=== PATIENT | female | born 1965 | race Caucasian/White ===

== ENCOUNTER 2021-10-31 18:01 | Emergency (ER) | payer BC ==
[2021-10-31] MEDS ORDERED: Sodium Chloride 0.9% 1000 ML 1,000 ML IV STA (18:40)
--- NOTE | 2021-10-31 18:40 | ERPHSYRPT ---
- History of Present Illness Time Seen by Provider: 10/31/21 18:06 Source: patient Exam Limitations: no limitations Patient Subjective Stated Complaint: pt here for vomiting x1 today, loose stools x3, she was covid postive 10/30/2021. and states she went to [facility] and was unable to get the infusion and she thinks she need the infusion and fluids, Triage Nursing Assessment: pt alert, resp easy, face mask in place, has occ dry cough, skin w/d/p. no edema noted, Physician History: 56 years old unvaccinated against COVID-19 with a positive Covid having symptoms of generalized weakness fatigue tiredness for almost 6 days. Patient reports she lost her taste and smell sensation and has decreased oral intake. She also having nausea and vomiting with oral intake and is not able to hold much down and this morning she started to have some loose stool x3 without hematochezia or hematemesis. Minimal abdominal discomfort at times. She was evaluated yesterday at [facility], wanted to get Regeneron which was not available there and she decided to come here today to get Regeneron and some fluids. She feels dehydrated. Has minimal nonproductive cough without any shortness of breath or chest pain. Subjective feeling of fever and chills. Timing/Duration: day(s) (6), constant, gradual onset, worse Severity: moderate Modifying Factors: Worsens With: movement Associated Symptoms: nausea, vomiting, abdominal pain, cough, fever, headaches, loss of appetite, malaise, weakness, No shortness of breath Allergies/Adverse Reactions: No Known Drug Allergies Allergy (Unverified 10/31/21 18:34) Home Medications: Amlodipine Besylate [Norvasc] 1 ea DAILY 10/31/21 [History] Irbesartan/Hydrochlorothiazide [Irbesartan-Hctz 300-12.5 mg Tb] 1 ea DAILY 10/31/21 [History] Ondansetron [Ondansetron Odt ] 1 ea TID 10/31/21 [History] Hx Tetanus, Diphtheria Vaccination/Date Given: No Hx Influenza Vaccination/Date Given: No Hx Pneumococcal Vaccination/Date Given: No Immunizations Up to Date: Yes Travel Risk - International Travel Have you traveled outside of the country in past 3 weeks: No - Coronavirus Screening Are you exhibiting any of the following symptoms?: Yes Symptoms: Cough: New Onset, Vomiting/Diarrhea, Headaches/Body Aches/Fatigue Close contact with a COVID-19 positive Pt in past 14-21 Days: Yes - Vaccine Status Have you recieved a Covid-19 vaccination: No - Review of Systems Constitutional: Fever, Chills, Fatigue, Weakness Eyes: No Symptoms Ears, Nose, & Throat: No Symptoms Respiratory: Cough Cardiac: No Symptoms Abdominal/Gastrointestinal: Abdominal Pain, Nausea, Vomiting, Diarrhea Genitourinary Symptoms: No Symptoms Musculoskeletal: Myalgias Skin: No Symptoms Neurological: No Symptoms Psychological: No Symptoms Endocrine: No Symptoms Hematologic/Lymphatic: No Symptoms Immunological/Allergic: No Symptoms - Past Medical History Pertinent Past Medical History: Yes Cardiac History: Hypertension - Past Surgical History Past Surgical History: Yes Gastrointestinal: Appendectomy Musculoskeletal: Orthopedic Surgery Female Surgical History: Tubal Ligation Other Surgical History: breast inplants ,knee - Social History Smoking Status: Current every day smoker Exposure to second hand smoke: Yes Drug Use: none Patient Lives Alone: No - Female History Hx Last Menstrual Period: hyster Hx Now: No - Nursing Vital Signs Nursing Vital Signs: Initial Vital Signs Temperature 98.0 F 10/31/21 18:26 Pulse Rate 90 10/31/21 18:26 Respiratory Rate 18 10/31/21 18:26 Blood Pressure 175/54 10/31/21 18:26 O2 Sat by Pulse Oximetry 96 10/31/21 18:26 Pain Scale Pain Intensity 4 - Physical Exam General Appearance: no apparent distress, alert Eye Exam: PERRL/EOMI, eyes nml inspection Ears, Nose, Throat Exam: moist mucous membranes, pharyngeal erythema Neck Exam: normal inspection, supple, full range of motion Respiratory Exam: normal breath sounds, lungs clear Cardiovascular Exam: regular rate/rhythm, normal heart sounds Gastrointestinal/Abdomen Exam: soft, normal bowel sounds, No tenderness Back Exam: normal inspection, normal range of motion Extremity Exam: normal inspection, normal range of motion, pelvis stable Neurologic Exam: alert, oriented x 3, cooperative, renal nurse II-XII nml as tested Skin Exam: normal color SpO2 Interpretation: normal SpO2: 96 O2 Delivery: Room Air Ordered Tests: Active Orders 24 hr Category Date Time Status IV Insertion STAT Care 10/31/21 18:40 Active NPO (ED) STAT Care 10/31/21 18:40 Active CBC W DIFF Stat Lab 10/31/21 18:40 Ordered CMP Stat Lab 10/31/21 18:40 Ordered Lactic Acid Stat Lab 10/31/21 18:40 Ordered UA W/RFX UR CULTURE Stat Lab 10/31/21 18:40 Ordered Medication Summary Generic Name Dose Route Start Last Admin Trade Name Freq PRN Reason Stop Dose Admin Sodium Chloride 1,000 mls @ 999 mls/hr 10/31/21 18:40 10/31/21 18:55 Sodium Chloride 0.9% 1000 Ml IV 10/31/21 19:40 999 mls/hr .Q1H1M STA Administration Discontinued Medications Generic Name Dose Route Start Last Admin Trade Name Freq PRN Reason Stop Dose Admin Sodium Chloride Confirm 10/31/21 18:47 Sodium Chloride 0.9% 1000 Ml Administered 10/31/21 18:48 Dose 1,000 mls @ ud .ROUTE .STK-MED ONE - Progress Progress: improved Progress Note: 10/31/21 she is given fluids and Zofran, on reevaluation feeling better. She is not in any distress, nontoxic appearance. Lungs bilateral clear and maintaining oxygen saturation at room air well above 95%. Abdominal exam soft nontender. Work-up grossly unremarkable. Recommended supportive care and outpatient follow-up for antibody infusion. Discussed signs symptoms of worsening needing return to ER which she seems understanding. I do not think she needs any imaging or any other work-up and is stable for discharge. Counseled pt/family regarding: lab results, diagnosis, need for follow-up, rad results, smoking cessation - Departure Departure Disposition: Home Clinical Impression: Acute viral syndrome, COVID-19 Condition: Stable Critical Care Time: No Referrals: DIOGENES CANALES FNP [Primary Care Provider] - Follow up/PCP as directed (1-2 days for reevaluation) Instructions: Cough, Adult (DC), Coronavirus Disease 2019 (COVID-19) (DC) Additional Instructions: Take Tylenol/Zofran as needed. Keep yourself well-hydrated with plenty of fluids. Up with primary care for reevaluation. Follow-up with outpatient for antibiotic infusion. Return to ER if having difficulty breathing, worsening/intractable nausea vomiting diarrhea/abdominal pain etc. Prescriptions: ondansetron HCL [Zofran] 4 mg PO Q6H PRN #7 tablet PRN Reason: Nausea
[2021-10-31] MEDS ORDERED: Sodium Chloride 0.9% 1000 ML 1,000 ML ONE (18:47)
[2021-10-31 19:27] LABS: Absolute Neutrophil Ct (ANC) 2.31 (1.4-6.9); BASOPHIL % 0.3 % (0.0-0.4); Basophil (Absolute #) 0.01 (0-0.4); Eosinophil % 0.3 % (0.00-5.0); Eosinophil (Absolute #) 0.01 (0-0.5); Hematocrit 39.3 % (35-47); Hemoglobin 13.6 gm/dl (12.0-16.0); Lymphocyte (Absolute #) 0.96 (1.0-4.6); Lymphocytes % 26.4 % (24.0-44.0); Mean Cell Volume 91.6 fl (78-100); Mean Corpuscular Hemoglobin 31.7 pg (26-32); Mean Corpuscular Hgb Concent. 34.6 g/dl (32-36); Mean Platelet Volume 10.9 fl (7.5-11.0); Monocyte (Absolute #) 0.34 (0.0-1.3); Monocytes % 9.4 % (0.0-12.0); Neutrophil % 63.6 % (36.0-66.0); Platelet Count 156 K/mm3 (150-450); Red Blood Count 4.29 M/mm3 (4.1-5.4); Red Cell Distribution Width 12.2 % (11.5-14.0); White Blood Count 3.6 K/mm3 (4.0-10.5)
[2021-10-31 19:37] LABS: Appearance SLIGHTLY CLOUDY (CLEAR); Bilirubin NEGATIVE (NEGATIVE); Blood MODERATE Ery/ul (0-5); Glucose NEGATIVE (NEGATIVE); Ketones NEGATIVE (NEGATIVE); Leukocyte Esterase NEGATIVE (NEGATIVE); Mucus SLIGHT /HPF (NEGATIVE); Nitrite NEGATIVE (NEGATIVE); Protein,Urine Dip 30 (Negative); Specific Gravity 1.024 (1.005-1.025); Urobilinogen NEGATIVE mg/dL (0-1)
[2021-10-31 19:55] LABS: ALBUMIN 3.8 g/dL (3.5-5.0); ALKALINE PHOSPHATASE 101 U/L (38-126); ANION GAP 10.5 MEQ/L (5-15); BLOOD UREA NITROGEN 17 mg/dL (7-17); CHLORIDE 97 mmol/L (98-107); Calcium 8.3 mg/dL (8.4-10.2); Carbon Dioxide 27 mmol/L (22-30); Creatinine 1 0.73 mg/dL (0.52-1.04); EST GLOMERULAR FILTRATION RATE > 60.0 ML/MIN; Glucose 104 mg/dL (74-106); Potassium 3.5 mmol/L (3.5-5.1); SGOT/AST 63 U/L (14-36); SGPT/ALT 72 U/L (0-35); SODIUM 131 mmol/L (137-145); Total Protein 6.5 g/dL (6.3-8.2)
[2021-10-31 21:13] VITALS: BP 127/60; PULSE 100; O2SAT 97
== END 2021-10-31 21:15 | disposition home or self-care (01) ==
LOC: ED 18:01
DX: U07.1 COVID-19 (principal); R43.8 Other disturbances of smell and taste; R11.2 Nausea with vomiting, unspecified; R05.9 Cough, unspecified; R50.9 Fever, unspecified; R51.9 Headache, unspecified; I10 Essential (primary) hypertension; Z72.0 Tobacco use
CPT/HCPCS: 36000; 36415; 80053; 81001; 83605; 85025; 87086; 96360; 99284